=== PATIENT | male | born 1985 | race African-American/Black ===

== ENCOUNTER 2020-02-10 16:42 | Outpatient (CLI) | payer OTHER, SELFPAY ==
--- NOTE | ~2020-02-10 | XR_ITS ---
EXAMINATION: XR facial bones min 3V DATE: 02/10/2020 17:11 INDICATION: Right jaw pain. TECHNIQUE: 4 views of the mandible were obtained. COMPARISON: None. FINDINGS: Bone alignment is normal. No fracture. IMPRESSION: 1. Normal mandible. Reviewed, dictated and finalized at location A. 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 Normal mandible.
== END 2020-02-10 16:43 | disposition home or self-care (01) ==
PROVIDERS: PCP Emergency Medicine; Visit Provider Emergency Medicine
DX: R68.84 Jaw pain (principal)
CPT/HCPCS: 70150

== ENCOUNTER → 2021-12-31 15:29 | Outpatient (CLI) | payer OTHER, SELFPAY ==
--- NOTE | ~2021-12-31 | XR_ITS ---
XR thoracic spine 3V 12/31/2021 15:56 Indication: Upper back pain Procedure: 3 views thoracic spine Comparison: 05/22/2014 Findings: There is mild dextroscoliosis of the thoracic spine. Vertebral body heights are maintained. Pedicles intact. No acute fracture or traumatic malalignment. Surrounding osseous structures within normal limits. No paraspinal soft tissue abnormality. Impression: 1: Mild dextroscoliosis of the thoracic spine. Reviewed, dictated and finalized at location B. Impression: 1: Mild dextroscoliosis of the thoracic spine.
--- NOTE | ~2021-12-31 | XR_ITS ---
EXAMINATION: XR chest 2V 12/31/2021 15:56 INDICATION: Chest pain PROCEDURE: 2 view chest COMPARISON: No prior studies for comparison. FINDINGS: The lungs are clear. The cardiomediastinal silhouette is within normal limits. There are no pleural effusions. There is no pneumothorax suspected. IMPRESSION: 1: NO ACUTE CARDIOPULMONARY DISEASE. Reviewed, dictated and finalized at location B.
== END ==
PROVIDERS: PCP Emergency Medicine; Visit Provider Emergency Medicine
DX: M54.2 Cervicalgia (principal); M54.6 Pain in thoracic spine
CPT/HCPCS: 71046; 72072